=== PATIENT | male | born 1975 | race Hispanic/Latino ===

== ENCOUNTER 2020-10-18 12:40 | Day surgery (SDC) | payer BC, OTHER ==
[2020-10-18 14:00] LABS: Basophils % (Auto) 0.6 % (0.0-1.8); Eosinophils # (Auto) 0.3 K/mm3 (0.0-0.4); Eosinophils % (Auto) 4.2 % (0.0-4.3); Hematocrit 44.9 % (35.5-45.6); Hemoglobin 15.8 gm/dl (11.8-15.2); Lymphocytes # (Auto) 2.2 K/mm3 (1.2-5.4); Lymphocytes % (Auto) 33.2 % (13.4-35.0); Mean Corpuscular HGB Conc 35 % (32-34); Mean Corpuscular Volume 87 fl (84-94); Monocytes # (Auto) 0.5 K/mm3 (0.0-0.8); Monocytes % (Auto) 7.8 % (0.0-7.3); Platelet Count 160 K/mm3 (140-440); Red Blood Count 5.16 M/mm3 (3.65-5.03); Red Cell Distribution Width 12.9 % (13.2-15.2)
[2020-10-18] MEDS ORDERED: SODIUM CHLORIDE IRRI 1000 ML 1 ML, .VANCOMYCIN VIAL 1,000 MG IR ONE (14:00)
[2020-10-18] MEDS ORDERED: SODIUM CHLORIDE 0.45% 1000 ML 1,000 ML IV SCH (14:00)
[2020-10-18 14:11] LABS: INR 1.02 (0.87-1.13)
[2020-10-18 14:12] LABS: Partial Thromboplastin Time 26.3 Sec. (24.2-36.6)
[2020-10-18 14:16] LABS: BUN/Creatinine Ratio 15; Blood Urea Nitrogen 12 mg/dL (9-20); Calcium 9.4 mg/dL (8.4-10.2); Hemolysis Index 9
--- NOTE | 2020-10-18 15:04 | History and Physical Report ---
History of Present Illness Date of examination: 10/18/20 Date of admission: 10/18/2020 Chief complaint: No current complaint History of present illness: 44-year-old male with a past medical history of PPM/chronotropic incompetence, paroxysmal atrial fibrillation, history of aortopathy/connective tissue disease/aortic arch repair 2009, and hypertriglyceridemia who presents today for scheduled elective PPM replacement. Past History Past Medical History: other (As per HPI) Medications and Allergies Allergies Allergy/AdvReac Type Severity Reaction Status Date / Time No Known Allergies Allergy Unverified 10/18/20 12:40 Active Meds: Active Medications Sodium Chloride (Nacl 0.45% 1000 Ml) 1,000 mls @ 50 mls/hr IV DIRECT HORTENCIA Review of Systems All systems: negative (No Complaints) Physical Examination Vital Signs Temp Pulse Resp BP Pulse Ox 98.1 F 52 L 16 148/68 100 10/18/20 14:42 10/18/20 14:42 10/18/20 14:42 10/18/20 14:42 10/18/20 14:42 HEENT: Positive: PERRL, Normocephaly, Mucus Membranes Moist Neck: Positive: neck supple, trachea midline Cardiac: Positive: Reg Rate and Rhythm, S1/S2 Lungs: Positive: Normal Exam, clear to auscultation, Normal Breath Sounds Neuro: Positive: Grossly Intact, Cranial Nerve 2-12 Intact, Motor Function Intact, Coordination Normal Abdomen: Positive: Unremarkable Skin: Positive: Clear Extremities: Present: normal, upper extr. pulses, lower extr. pulses Results 10/18/20 13:50 10/18/20 13:50 Coagulation 10/18/20 Range/Units 13:50 PT 13.3 (12.2-14.9) Sec. INR 1.02 (0.87-1.13) APTT 26.3 (24.2-36.6) Sec. CBC 10/18/20 Range/Units 13:50 WBC 6.8 (4.5-11.0) K/mm3 RBC 5.16 H (3.65-5.03) M/mm3 Hgb 15.8 H (11.8-15.2) gm/dl Hct 44.9 (35.5-45.6) % Plt Count 160 (140-440) K/mm3 Lymph # (Auto) 2.2 (1.2-5.4) K/mm3 [place] # (Auto) 0.5 (0.0-0.8) K/mm3 Eos # (Auto) 0.3 (0.0-0.4) K/mm3 Baso # (Auto) 0.0 (0.0-0.1) K/mm3 Comprehensive Metabolic Panel 10/18/20 Range/Units 13:50 Sodium 142 (137-145) mmol/L Potassium 4.7 (3.6-5.0) mmol/L Chloride 104.0 (98-107) mmol/L Carbon Dioxide 29 (22-30) mmol/L BUN 12 (9-20) mg/dL Creatinine 0.8 (0.8-1.3) mg/dL Glucose 97 (75-100) mg/dL Calcium 9.4 (8.4-10.2) mg/dL Assessment and Plan Proceed with PPM exchange as scheduled. Pt seen in conjunction with Dr. Amezcua, who agrees with this assessment and plan. - Patient Problems (1) SSS (sick sinus syndrome) Status: Acute (2) Cardiac pacemaker in situ Status: Acute (3) Paroxysmal atrial fibrillation Status: Acute (4) Connective tissue disease Status: Acute
--- NOTE | 2020-10-18 15:08 | Anesthesia Day of Surgery ---
Anesthesia Day of Surgery - Day of Surgery Patient Examined: Yes Patient H&P Reviewed: Yes Patient is NPO: Yes Beta Blockers: Yes (metoprolol)
--- NOTE | 2020-10-18 15:08 | Anesthesia Consultation ---
Anesthesia Consult and Med Hx Date of service: 10/18/20 - Airway Anesthetic Teeth Evaluation: Good ROM Head & Neck: Adequate Mental/Hyoid Distance: Adequate Mallampati Class: Class II Intubation Access Assessment: Probably Good - Pulmonary Exam CTA: Yes - Cardiac Exam Cardiac Exam: No Murmur - Pre-Operative Health Status ASA Pre-Surgery Classification: ASA3 Proposed Anesthetic Plan: MAC - Pulmonary Hx Smoking: Yes (former smoker quit 11yrs ago) Hx Respiratory Symptoms: No - Cardiovascular System Hx Heart Attack/AMI: No Hx Percutaneous Transluminal Coronary Angioplasty (PTCA): No Hx Cardia Arrhythmia: Yes (SSS, a-fib) Hx Pacemaker: Yes Hx Peripheral Vascular Disease: Yes (thoracic aortic aneurysm) - Central Nervous System CVA: No - Gastrointestinal Hx Gastroesophageal Reflux Disease: No - Endocrine Hx Renal Disease: No Hx Liver Disease: No Hx Insulin Dependent Diabetes: No Hx Non-Insulin Dependent Diabetes: No Hx Thyroid Disease: No - Other Systems Hx Obesity: No - Additional Comments Anesthesia Medical History Comments: No hx anesthetic complications. Hx connective tissue disease (?Marfan's).
[2020-10-18] MEDS ORDERED: HYDROmorphone 1 MG/1 ML INJ ONE (17:05)
[2020-10-18] MEDS ORDERED: KETAMINE/STERILE WATER 50 MG/ML SYRINGE ONE (17:06)
[2020-10-18] MEDS ORDERED: ePHEDrine SULFATE 50 MG/1 ML INJ ONE (17:06)
[2020-10-18] MEDS ORDERED: propofoL 200 MG/20 ML VIAL IV ONE ×4 (17:06)
[2020-10-18] MEDS ORDERED: MIDAZOLAM 2 MG/2 ML INJ ONE (17:08)
[2020-10-18] MEDS ORDERED: SODIUM CHLORIDE IRRI 500 ML 500 ML IR ONE (17:54)
[2020-10-18] MEDS ORDERED: LIDOCAINE (1%) 10 MG/1 ML VIAL 20 ML MDV ONE (17:54)
[2020-10-18] MEDS ORDERED: BUPIVACAINE/PF (0.5%) 5 MG/1 ML 30 ML VIAL INFILTRATI ONE (17:54)
[2020-10-18] MEDS ORDERED: ceFAZolin/Water 2 GM/20 ML 2 GM/20 ML SYRINGE IV ONE (17:55)
[2020-10-18] MEDS ORDERED: .VANCOMYCIN VIAL 1,000 MG in SODIUM CHLORIDE IRRI 1000 ML 1,000 ML IRRIGATION ONE (18:03)
[2020-10-18] MEDS ORDERED: LIDOCAINE MPF (2%) 20 MG/1 ML VIAL 5 ML ONE (19:00)
--- NOTE | 2020-10-18 19:27 | Post Anesthesia Evaluation ---
- Post Anesthesia Evaluation Patient Participated: Yes Airway Patent: Yes Stable Respiratory Function: Yes Nausea/Vomiting: No Temp > 96.8F: Yes Pain Manageable: Yes Adequeate Hydration: Yes Anesthesia Complications: No Other Comments: Awake, alert, bradycardic but HD stable with pain well controlled. OK for d/c to home.
[2020-10-18 20:21] VITALS: BP 125/62
== END 2020-10-18 21:15 | disposition home or self-care (01) ==
LOC: CATHLABREC 12:40
PROVIDERS: ATTEND Internal Medicine Cardiovascular Disease
DX: Z45.010 Encounter for checking and testing of cardiac pacemaker pulse generator [battery] (principal); I49.5 Sick sinus syndrome; I48.0 Paroxysmal atrial fibrillation; E78.00 Pure hypercholesterolemia, unspecified; Z79.899 Other long term (current) drug therapy; Z87.891 Personal history of nicotine dependence; Z98.890 Other specified postprocedural states
CPT/HCPCS: 33228; 36415; 80048; 85025; 85610; 85730; 93005; C1785; J0690; J1170; J2250; J2704; J3370; J3490